=== PATIENT | male | born 1980 | race American Indian/Alaskan Native ===

== ENCOUNTER 2016-12-25 05:50 | Day surgery (SDC) | payer OTHER ==
[~2016-12-25] VITALS: Ht 177.8 cm; Wt 141.5 kg
[~2016-12-25 05:50] MED LIST: ABILIFY5 MG; BISOPROLOL FUMAR5 MG PO; CEPHALEXIN500 MG PO; CHLORTHALIDONE25 MG PO; LANTUS100 UNITS/ SUB-Q; METFORMIN HCL1000 MG PO; METFORMIN HCL500 MG PO
[2016-12-25] MEDS ORDERED: ALBUTEROL0.63 MG/3 INH (06:20)
--- NOTE | 2016-12-25 09:11 | NUR ---
12/25/16 0911 Lianne Duran 0997-PATIENT ARRIVED TO PACU ON 10L MASK REACTIVE WITH EYES OPEN DENIES PAIN OR NAUSEA. GLUCOSE 181 RECEIVED STEROIDS IN OR. 3 LAP SITES TO ABDOMEN CDI WITH GAUZE AND TAPE ICE APPLIED. DROWSY.
--- NOTE | 2016-12-25 09:55 | NUR ---
PATIENT BACK IN DAY SURGERY ROOM FROM PACU. DENIES PAIN. DROWSY. ABDOMINAL LAP SITES X 5, ALL CLEAN DRY AND INTACT WITH GUAZE AND TAPE. IV SITE WNL. SCDs ON. FAMILY AT BEDSIDE. CALL LIGHT WITHIN REACH. ICE WATER PLACED AT BEDSIDE.
[2016-12-25] MEDS ORDERED: NORCO 10-325 T1 EACH PO (10:24)
--- NOTE | 2016-12-25 11:01 | NUR ---
1050: PATIENT AWAKE AND ALERT. DENIES PAIN. TOLERATING WATER. GIVEN CHOCOLATE PUDDING. O2 TURNED OFF. PATIENT ON ROOM AIR. FAMILY AT BEDSIDE. SCDs ON. CALL LIGHT WITHIN REACH.
== END 2016-12-25 12:10 | disposition home or self-care (01) ==
LOC: DS 05:50
PROVIDERS: Colon & Rectal Surgery
PROC: 0FB03ZX Excision of Liver, Percutaneous Approach, Diagnostic (ICD-10-PCS; 2016-12-25)
PROC: 0FT44ZZ Resection of Gallbladder, Percutaneous Endoscopic Approach (ICD-10-PCS; principal; 2016-12-25 06:45)
PROC: BF13YZZ Fluoroscopy of Gallbladder and Bile Ducts using Other Contrast (ICD-10-PCS; 2016-12-25 06:45)
DX: K81.1 Chronic cholecystitis (principal); K75.9 Inflammatory liver disease, unspecified; K76.0 Fatty (change of) liver, not elsewhere classified; E78.5 Hyperlipidemia, unspecified; E11.621 Type 2 diabetes mellitus with foot ulcer; L97.529 Non-pressure chronic ulcer of other part of left foot with unspecified severity; I10 Essential (primary) hypertension; E66.9 Obesity, unspecified; Z88.1 Allergy status to other antibiotic agents; Z88.5 Allergy status to narcotic agent; Z68.42 Body mass index [BMI] 45.0-49.9, adult; Z88.8 Allergy status to other drugs, medicaments and biological substances
CPT/HCPCS: 00790; 74300; J0330; J0694; J1100; J1644; J1885; J2250; J2405; J2704; J2710; J2765; J3010; J7120; Q9967

== ENCOUNTER 2017-11-25 15:57 | Inpatient (IN) | payer OTHER ==
[~2017-11-25] VITALS: Ht 177.8 cm; Wt 141.5 kg
[~2017-11-25 15:57] MED LIST changes: +ALBUTEROL0.63 MG/3 INH; +NORCO 10-325 T1 EACH PO
[2017-11-25] MEDS ORDERED: GLUCOTROL5 MG PO (16:12)
[2017-11-26] MEDS ORDERED: LIPITOR10 MG PO (13:51)
[2017-11-26] MEDS ORDERED: COZAAR25 MG PO (13:52)
--- NOTE | 2017-11-27 12:34 | EKG ---
[facility] [address] [place] [address] Signed Normal sinus rhythm Right bundle branch block Abnormal ECG When compared with ECG of 18-DEC-2016 08:21, No significant change was found Confirmed by LOLI PLAZA MD ([id number]) on 11/27/2017 12:33:48 PM Electronically Signed By: LOLI PLAZA MD 11/27/17 1234 PATIENT NAME: ARABELLA QUINONES Electrocardiogram DATE OF : 82 PHYSICIAN: LOLI PLAZA MD REPORT #: [id number] REPORT IS CONFIDENTIAL AND NOT TO BE RELEASED WITHOUT AUTHORIZATION
[2017-11-29] MEDS ORDERED: AMOX TR-K CLV1 EAC1 PO (10:18)
[2017-11-29] MEDS ORDERED: BISOPROLOL FUMA10 MG PO (10:19)
[2017-11-29] MEDS ORDERED: ACETAMINOPHEN-1 EAC1 PO (10:20)
[2017-11-29] MEDS ORDERED: FOLIC ACID1 MG PO (10:21)
[2017-11-29] MEDS ORDERED: NOVOLOG100 UNIT/2 SUB-Q (10:24)
[2017-11-29] MEDS ORDERED: BLOOD GLUCOSE1 EAC1 MISC (10:30)
[2017-11-29] MEDS ORDERED: ACCU-CHEK1 EAC1 MISC (10:30)
[2017-11-29] MEDS ORDERED: BLOOD GLUCOSE1 EAC8 MISC (10:30)
== END 2017-11-29 11:15 | disposition home or self-care (01) | DRG 854 ==
LOC: ED 15:57 → MS 18:53 → CCU 18:53 → MS 11-26 12:00
PROVIDERS: ADMIT Internal Medicine
PROC: 0J9Q0ZZ Drainage of Right Foot Subcutaneous Tissue and Fascia, Open Approach (ICD-10-PCS; principal; 2017-11-25)
DX: A41.01 Sepsis due to Methicillin susceptible Staphylococcus aureus (principal); L03.115 Cellulitis of right lower limb; N17.9 Acute kidney failure, unspecified; L02.611 Cutaneous abscess of right foot; E87.1 Hypo-osmolality and hyponatremia; E11.628 Type 2 diabetes mellitus with other skin complications; E11.621 Type 2 diabetes mellitus with foot ulcer; L97.519 Non-pressure chronic ulcer of other part of right foot with unspecified severity; E11.22 Type 2 diabetes mellitus with diabetic chronic kidney disease; I12.9 Hypertensive chronic kidney disease with stage 1 through stage 4 chronic kidney disease, or unspecified chronic kidney disease; N18.3 Chronic kidney disease, stage 3 (moderate); K76.0 Fatty (change of) liver, not elsewhere classified; E86.1 Hypovolemia; I45.10 Unspecified right bundle-branch block; E83.42 Hypomagnesemia; D63.8 Anemia in other chronic diseases classified elsewhere; E53.8 Deficiency of other specified B group vitamins; E11.319 Type 2 diabetes mellitus with unspecified diabetic retinopathy without macular edema; E11.40 Type 2 diabetes mellitus with diabetic neuropathy, unspecified; E11.21 Type 2 diabetes mellitus with diabetic nephropathy; Z88.8 Allergy status to other drugs, medicaments and biological substances; Z89.432 Acquired absence of left foot; Z79.4 Long term (current) use of insulin; Z79.899 Other long term (current) drug therapy
CPT/HCPCS: 36415; 73630; 73723; 80048; 80053; 80202; 82570; 82607; 82728; 82746; 83036; 83540; 83605; 83735; 84300; 84466; 85025; 87040; 87070; 87075; 87077; 87186; 87205; 88300; 93005; 93010; 96374; 99285; A9579; J1335; J1650; J2405; J3370; J3475; J7030; J7040; J7050; J7120

== ENCOUNTER 2019-05-19 11:47 | Emergency (ER) | payer OTHER ==
[~2019-05-19] VITALS: Ht 177.8 cm; Wt 141.5 kg
[~2019-05-19 11:47] MED LIST changes: +ACCU-CHEK1 EAC1 MISC; +ACETAMINOPHEN-1 EAC1 PO; +AMOX TR-K CLV1 EAC1 PO; +BISOPROLOL FUMA10 MG PO; +BLOOD GLUCOSE1 EAC1 MISC; +BLOOD GLUCOSE1 EAC8 MISC; +COZAAR25 MG PO; +FOLIC ACID1 MG PO; +GLUCOTROL5 MG PO; +LIPITOR10 MG PO; +NOVOLOG100 UNIT/2 SUB-Q
== END 2019-05-19 14:55 | disposition home or self-care (01) ==
LOC: ED 11:47
DX: S06.9X9A Unspecified intracranial injury with loss of consciousness of unspecified duration, initial encounter (principal); S16.1XXA Strain of muscle, fascia and tendon at neck level, initial encounter; S00.01XA Abrasion of scalp, initial encounter; E11.9 Type 2 diabetes mellitus without complications; I10 Essential (primary) hypertension; Z88.8 Allergy status to other drugs, medicaments and biological substances; Z79.899 Other long term (current) drug therapy; Z79.4 Long term (current) use of insulin; W18.39XA Other fall on same level, initial encounter
CPT/HCPCS: 70450; 72125; 99284-25; A9270

== ENCOUNTER 2019-09-15 19:42 | Emergency (ER) | payer OTHER ==
[~2019-09-15] VITALS: Ht 177.8 cm; Wt 151.9 kg
--- OUTSIDE RECORDS SUMMARY | 2019-09-15 19:46 | XMS ---
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 EAnusha VISIT COUNT (12 MO.) 1 Vicky Gay 2 ANALI Kelly TOTAL 3 NOTE: Visits indicate total known visits. 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
[2019-09-15] MEDS ORDERED: CALCIUM CARBON650 MG PO (21:44)
[2019-09-15] MEDS ORDERED: SUPER CALCIUM600 MG PO (21:44)
== END 2019-09-15 22:00 | disposition home or self-care (01) ==
LOC: ED 19:42
DX: I12.9 Hypertensive chronic kidney disease with stage 1 through stage 4 chronic kidney disease, or unspecified chronic kidney disease (principal); E11.22 Type 2 diabetes mellitus with diabetic chronic kidney disease; N18.9 Chronic kidney disease, unspecified; E83.51 Hypocalcemia; Z79.4 Long term (current) use of insulin
CPT/HCPCS: 80048; 96360; 99282-25; J7030

== ENCOUNTER 2020-07-02 04:18 | Emergency (ER) | payer OTHER ==
[~2020-07-02] VITALS: Ht 177.8 cm; Wt 147.0 kg
[~2020-07-02 04:18] MED LIST changes: +CALCIUM CARBON650 MG PO; +SUPER CALCIUM600 MG PO
--- OUTSIDE RECORDS SUMMARY | 2020-07-02 04:20 | XMS ---
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 Nae has no Care Guidelines for this patient. Karlene VISIT COUNT (12 MO.) 1 Vicky Gay 2 ANALI Kelly TOTAL 3 NOTE: Visits indicate total known visits. 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
[2020-07-02] MEDS ORDERED: INDAPAMIDE1.25 MG PO (04:30)
[2020-07-02] MEDS ORDERED: METOPROLOL SUC200 MG PO (04:31)
--- NOTE | 2020-07-02 19:05 | EKG ---
[facility] [address] [place], [place] [address] Signed Normal sinus rhythm Right bundle branch block Abnormal ECG When compared with ECG of 25-NOV-2017 21:08, QT has lengthened Confirmed by SJ TAVAREZ MD ([id number]) on 07/02/2020 7:05:30 PM Electronically Signed By: SJ TAVAREZ MD 07/02/20 1905 PATIENT NAME: ARABELLA QUINONES KESHA Electrocardiogram DATE OF : 82 PHYSICIAN: SJ TAVAREZ MD REPORT #: [id number] REPORT IS CONFIDENTIAL AND NOT TO BE RELEASED WITHOUT AUTHORIZATION
== END 2020-07-02 19:07 | disposition short-term general hospital (02) ==
LOC: ED 04:18
DX: E11.69 Type 2 diabetes mellitus with other specified complication (principal); L08.9 Local infection of the skin and subcutaneous tissue, unspecified; N17.9 Acute kidney failure, unspecified; D64.9 Anemia, unspecified; E83.51 Hypocalcemia; E83.42 Hypomagnesemia; K92.2 Gastrointestinal hemorrhage, unspecified; Z20.822 Contact with and (suspected) exposure to COVID-19; I10 Essential (primary) hypertension; Z88.8 Allergy status to other drugs, medicaments and biological substances; Z79.899 Other long term (current) drug therapy; Z79.4 Long term (current) use of insulin
CPT/HCPCS: 51702; 73630; 80053; 81001; 82330; 82550; 83605; 83735; 85025; 85651; 86140; 87088; 93005; 93010; 99285-25; C9803; J0295; J0610; J2270; J2405; J7121; U0003

== ENCOUNTER 2023-12-31 20:44 | Emergency (ER) | payer OTHER ==
[~2023-12-31] VITALS: Ht 177.8 cm; Wt 125.0 kg
[~2023-12-31 20:44] MED LIST changes: +INDAPAMIDE1.25 MG PO; +METOPROLOL SUC200 MG PO
[2023-12-31 22:10] LABS: BASOPHILS 0.6 % (0-2); EOSINOPHILS 1.8 % (0-6); HEMATOCRIT 38.4 % (35.0-50.0); LYMPHOCYTES 11.2 % (24-44); MCH 30.8 (27-36); MCHC 33.9 g/dl (30-36); MCV 90.7 fl (81-99); MONOCYTES 5.9 % (0-12); NEUTROPHILS 80.5 % (39-80); PLATELET COUNT 416 K/uL (140-440); RBC 4.23 M/ul (4.3-5.7); RDW 14.1 (10.5-15.0)
[2023-12-31] MEDS ORDERED: ACETAMINOPHEN 500 MG TAB PO ONE (22:15)
[2023-12-31 22:30] LABS: ALBUMIN 3.6 g/dL (3.4-5.0); ALBUMIN/GLOBULIN RATIO 0.68 (1.1-2.4); ANION GAP 12.9 (7-21); BILIRUBIN, TOTAL 0.3 ng/dL (0.2-1.0); CALCIUM 9.2 mg/dL (8.5-10.1); CREATININE, SERUM 6.75 mg/dL (0.70-1.30); POTASSIUM 3.9 mmol/L (3.5-5.1); PROTEIN, TOTAL 8.9 g/dL (6.4-8.2)
[2023-12-31] MEDS ORDERED: LACTATED RINGER'S 1,000 ML IV ONE (22:30)
[2023-12-31] MEDS ORDERED: TRIMETHOPRIM/SULFAMETHOXAZOLE 1 EA TAB PO ONE (22:30)
[2023-12-31 23:48] LABS: LACTIC ACID, BLOOD 1.4 mmol/L (0.4-2.0)
[2023-12-31] MEDS ORDERED: DOXYCYCLINE HY100 MG PO (23:48)
[2024-01-01 00:30] VITALS: BP 132/68
== END 2024-01-01 00:48 | disposition home or self-care (01) ==
LOC: ED 20:44
PROVIDERS: Internal Medicine
DX: L08.9 Local infection of the skin and subcutaneous tissue, unspecified (principal); E11.621 Type 2 diabetes mellitus with foot ulcer; L97.518 Non-pressure chronic ulcer of other part of right foot with other specified severity; I12.0 Hypertensive chronic kidney disease with stage 5 chronic kidney disease or end stage renal disease; E11.22 Type 2 diabetes mellitus with diabetic chronic kidney disease; N18.6 End stage renal disease; E11.42 Type 2 diabetes mellitus with diabetic polyneuropathy; Z99.2 Dependence on renal dialysis; Z88.8 Allergy status to other drugs, medicaments and biological substances; Z79.4 Long term (current) use of insulin; Z79.899 Other long term (current) drug therapy
CPT/HCPCS: 36415; 73630; 80053; 83605; 85025; 86140; A9270

== ENCOUNTER 2024-11-15 06:38 | Day surgery (SDC) | payer OTHER ==
[~2024-11-15 06:38] MED LIST changes: +DOXYCYCLINE HY100 MG PO; +LACTATED RINGER'S 1,000 ML IV SCH
[2024-11-15] MEDS ORDERED: LIDOCAINE HCL 2% 20 ML MDV ONE (06:40)
[2024-11-15] MEDS ORDERED: Ropivacaine HCl 0.5% 30 ML VIAL ONE (06:40)
[2024-11-15] MEDS ORDERED: DEXAMETHASONE SOD PHOS 4 MG/ML VIAL ONE (06:41)
[2024-11-15] MEDS ORDERED: VANCOMYCIN HCL 500 MG VIAL ONE (06:54)
[2024-11-15 07:00] VITALS: BP 150/72
[2024-11-15] MEDS ORDERED: LIDOCAINE HCL 1% 5 ML SDV INJ ONE (07:00)
[2024-11-15] MEDS ORDERED: IBLOOD GLUCOSE TEST STRIP 1 EA TEST VI PRN ×2 (07:00→10:15)
[2024-11-15] MEDS ORDERED: TORSEMIDE100 MG PO (07:01)
[2024-11-15] MEDS ORDERED: XPHOZAH30 MG PO (07:02)
[2024-11-15] MEDS ORDERED: VENTOLIN HFA18 GM INH (07:03)
[2024-11-15] MEDS ORDERED: OZEMPIC2 MG/0.75 SQ (07:03)
[2024-11-15] MEDS ORDERED: BUPRENORPHINE HC2 MG SL (07:03)
[2024-11-15] MEDS ORDERED: fentaNYL citrate 100 MCG/2 ML VIAL ONE (07:26)
[2024-11-15] MEDS ORDERED: propofoL 200 MG/20 ML VIAL ONE ×3 (07:26→08:53)
[2024-11-15] MEDS ORDERED: ondansetron HCL 4 MG/2 ML VIAL ONE (07:26)
[2024-11-15] MEDS ORDERED: LIDOCAINE HCL 2% 5 ML SDV ONE (07:26)
--- NOTE | 2024-11-15 08:58 | NUR ---
RECEIVED GRAM STAIN RESULTS FROM CHRISTOPHER IN LAB. CALLED INTO OR 3 TO RELAY RESULTS, MANY WBC DETECTED, NO ORGANISMS SEEN. VERBAL READ BACK W/MAY VELASCO.
[2024-11-15 10:13] VITALS: BP 124/66
[2024-11-15] MEDS ORDERED: NALOXONE HCL 0.4 MG SYR IV PRN (10:15)
[2024-11-15] MEDS ORDERED: PROCHLORPERAZINE EDISYLATE 10 MG/2 ML VIAL IV PRN (10:15)
[2024-11-15] MEDS ORDERED: fentaNYL citrate 50 MCG/ML SDV IV PRN (10:15)
[2024-11-15] MEDS ORDERED: droPERidol 5 MG/2 ML VIAL IV PRN (10:15)
[2024-11-15] MEDS ORDERED: ondansetron HCL 4 MG/2 ML VIAL IV PRN (10:15)
--- NOTE | 2024-11-15 10:29 | NUR ---
11/15/24 1029 Isabel Ledesma 0912 PT ARRIVED IN PACU NON RESPONSIVE TO NOXIOUS STIMULI WITH OPA IN PLACE. 912 PT REACTIVE. OPA REMOVED. 919 BLOOD SUGAR 134. PT RESTING. 929 THREE VIEW XRAY OF R FOOT TAKEN. 944 SIPPING ON WATER. C/O R FOOT PAIN 12/05. DECLINED PAIN MED AT THIS TIME. 1000 SITTING UP IN BED GETTING DRESSED. 1015 DC INSTRUCTIONS GIVEN. ALL QUESTIONS ANSWERED. 1020 LEFT VIA W/C.
--- NOTE | 2024-11-16 08:26 | EKG ---
[facility] [address] [facility] [place] [address] Signed Normal sinus rhythm Right bundle branch block Abnormal ECG When compared with ECG of 02-JUL-2020 09:07, No significant change was found Confirmed by Sigifredo Spangler MD ([id number]) on 11/16/2024 8:26:03 AM Electronically Signed By: SIGIFREDO SPANGLER MD 11/16/24825 PATIENT NAME: ARABELLA QUINONES KESHA Electrocardiogram DATE OF : 82 PHYSICIAN: SIGIFREDO SPANGLER MD REPORT #: [id number] REPORT IS CONFIDENTIAL AND NOT TO BE RELEASED WITHOUT AUTHORIZATION
--- NOTE | 2024-11-17 06:39 | OR ---
[facility] [address] [place], [place] [address] Signed DATE OF OPERATION: 11/15/2024 SURGEON: Chapin Pan DPM PREOPERATIVE DIAGNOSES: 1. Ulcer with osteomyelitis, right 3rd digit. 2. Ulcer with osteomyelitis, right 1st metatarsal head. 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 SYSTEM DEVELOPMENT ENGINEER: Eliel Gibson. SPECIMEN TO PATHOLOGY: Soft tissue and bone of partial amputation right 3rd digit as well as soft tissue and bone of right hallux amputation, and bone/ulcer of 1st metatarsal head debridement. PROCEDURES PERFORMED: 1. Amputation, right hallux. 2. Partial amputation, right 3rd digit. 3. Debridement of ulcer and 1st metatarsal, right foot. DESCRIPTION OF PROCEDURE: The patient was brought to the operating room and placed on the table in the supine position. Anesthesia Department administered IV sedation after which a local block was given to the right foot using a total of 10 mL 1:1 mixture of 2% lidocaine plain and 0.5% ropivacaine plain. The right leg and foot were then prepped and draped in the usual sterile manner and an Esmarch was used for hemostasis. Attention was initially directed to the right 3rd digit where a transverse elliptical incision was made just distal to the proximal interphalangeal joint, ellipsing the entire ulcer and the distal portion of the toe, then the toe was disarticulated at the proximal interphalangeal joint and sent for pathology. The remaining soft tissue was then debrided to eliminate any remaining necrotic tissue. The bone of the head of the proximal phalanx appeared to be solid and intact without sign of discoloration. The Electronically Signed By: CHAPIN PAN DPM 11/17/24 0639 PATIENT NAME: ARABELLA QUINONES OPERATIVE REPORT DATE OF : 82 REPORT #: [id number] PHYSICIAN: CHAPIN APN DPM PCP: ETHAN CARRERA MD REPORT IS CONFIDENTIAL AND NOT TO BE RELEASED WITHOUT AUTHORIZATION [facility] [address] [place], [place] [address] Signed surgical site was then irrigated and then closed using 4-0 nylon monofilament suture, prior to complete closure, calcium sulfate antibiotic beads were placed within the wound site containing vancomycin. PROCEDURE #2: Amputation right hallux. The incision originated at the dorsal/medial aspect of the 1st metatarsophalangeal joint area extending along the dorsal medial aspect of the toe then ellipsing the toenail. The soft tissues then reflected to expose the bone of the hallux, which was then removed from the soft tissues and disarticulated at the MTPJ. This created a large soft tissue flap which could be used for closure and covering the defect of the large ulcer at the 1st metatarsal head. The soft tissue to the lateral and plantar aspect of the proximal phalanx showed significant amount of necrosis and a pocket of purulent drainage noted at this site and intraoperative cultures were obtained from this. The incision then extended to the ulcer at the dorsal/medial 1st metatarsal head which was excised as well. Soft tissue debrided with use of hand instrumentation. At this time, necrotic tissue was noted to the dorsal, lateral, and plantar aspect of the 1st metatarsal head. Therefore, at this time, it was deemed necessary to excise the 1st metatarsal head, which was then done with power instrumentation, removing the entire 1st metatarsal head. This allowed access to soft tissues surrounding the area, which was then debrided with a rongeur. This extended a small amount dorsally over the 1st intermetatarsal space as well as extending within the subcutaneous tissue over distal 2nd metatarsal. No purulence was found to this area, only some soft tissue necrosis which was debrided. At this time because the soft tissue showed some infection in the area of the 1st metatarsal head as well as the sesamoids, the sesamoids were excised as well. The surgical site irrigated with copious amounts of saline, then also irrigated with Irrisept antibiotic irrigation. At this time, the soft tissue flaps were remodeled removing areas of some necrotic tissue and then the surgical site was closed using 3-0 nylon monofilament suture. The soft tissue from the hallux amputation was pulled proximal and the soft tissue defect of the ulcer at the dorsal/medial 1st metatarsal head was covered. Prior to complete closure, the surgical site was packed with calcium sulfate antibiotic containing beads with vancomycin. Dressings to the hallux amputation and ulcer debridement site as well as the partial amputation site, right 3rd digit were dressed with Adaptic, Betadine-soaked gauze, dry gauze, Kerlix roll, as well as an ABD pad. Coban used to secure the dressings and provide mild compression. INTRAOPERATIVE COMPLICATIONS: None. ESTIMATED BLOOD LOSS: Electronically Signed By: CHAPIN PAN DPM 11/17/24 0639 PATIENT NAME: ARABELLA QUINONES OPERATIVE REPORT DATE OF : 82 REPORT #: [id number] PHYSICIAN: CHAPIN PAN DPM PCP: ETHAN CARRERA MD REPORT IS CONFIDENTIAL AND NOT TO BE RELEASED WITHOUT AUTHORIZATION [address] [address] Signed Less than 5 mL. The patient tolerated the procedure and the anesthesia well and left the operating room with vital signs stable and vascular status intact to the right foot as evidenced by hyperemia with removal of the Esmarch. . CIRO Weinberg/JOHANL /[id number] Copies: ~ Electronically Signed By: CHAPIN PAN DPM 11/17/24 0639 PATIENT NAME: ARABELLA QUINONES [place] OPERATIVE REPORT DATE OF : [birth year] REPORT #: [id number] PHYSICIAN: CHAPIN PAN DPM PCP: ETHAN CARRERA MD REPORT IS CONFIDENTIAL AND NOT TO BE RELEASED WITHOUT AUTHORIZATION
--- NOTE | 2024-11-21 12:59 | PATH ---
[facility] [address] [place], [place] [address] Signed SPECIMEN(S): A PARTIAL RIGHT 3RD TOE SPECIMEN(S): B ULCER RIGHT 1ST METATARSAL AND TOE SPECIMEN SOURCE: A. PARTIAL RIGHT 3RD TOE B. ULCER RIGHT 1ST METATARSAL AND TOE CLINICAL HISTORY: Infected right foot FINAL PATHOLOGIC DIAGNOSIS: A. Right third toe, partial: - Skin mummification and acute inflammation extending into underlying soft tissue with abscess formation. - Underlying bone with marked acute osteomyelitis. B. Ulcer right toe metatarsal - Skin mummification and acute inflammation extending into underlying soft tissue. - Bone with marked acute osteomyelitis. NA MICROSCOPIC EXAMINATION: Histologic sections of all submitted blocks are examined by light microscopy. These findings, together with the gross examination, support the pathologic diagnosis. GROSS DESCRIPTION: A. The specimen, labeled and designated "Faraz, right third toe, partial," is received in formalin and consists of a 3.2 x 2.6 x 1.9 cm goldman-brown mottled, gangrenous distally amputated toe. The skin is entirely involved. The bone margin has been disarticulated. Sectioning of the skin lesion reveals possible underlying bone involvement. Animal Nutrition Consultant sections are submitted in cassettes A1-A2, following decalcification in decal stat. TN (under the direct supervision of a pathologist) B. The specimen, labeled and designated "Farrow, ulcer right toe metatarsal," is received in formalin and consists of three fragments of distal amputated toe, skin and bone measuring up to 7.2 cm in greatest dimension. The skin displays a 3.2 x 2.8 cm red-brown ulcerated lesion, adjacent to the margin. Sectioning of the skin lesion does not involve bone, business representative sections are submitted in PATIENT NAME: ARABELLA QUINONES PATHOLOGY DATE OF : 82 REPORT #: [id number] PHYSICIAN: YUE HERNANDEZ PCP: ETHAN CARRERA MD REPORT IS CONFIDENTIAL AND NOT TO BE RELEASED WITHOUT AUTHORIZATION [facility] [address] [place], [place] [address] Signed cassettes B1, following decalcification in decal stat, skin lesion with underlying soft tissue and business representative bone margin. TN (under the direct supervision of a pathologist) The Gross Description was prepared using a voice recognition system. The report was reviewed for accuracy; however, sound-alike word errors, addition and/or deletions may occur. If there is any question about this report, please contact Client Services. ADDITIONAL NOTES: Immunohistochemical and/or in situ hybridization studies if performed in this case included appropriate positive controls that reacted as expected. This test was developed and its performance characteristics determined by [facility]. It has not been cleared or approved by the U.S. Food and Drug Administration. The FDA has determined that such clearance or approval is not necessary. This test is used for clinical purposes. It should not be regarded as investigational or for research. [facility] is certified under the Clinical Laboratory Improvement Amendments of 1988 (CLIA) as qualified to perform high complexity clinical laboratory testing. PERFORMING LABORATORY: Technical preparation was performed by [facility], [address] [place] [address] (CLIA#: [id number]). Professional interpretation was performed by [facility] - [address] [id number] Diagnostician: Danielle Guzman MD Pathologist Electronically Signed 11/21/2024 Copies: ~ PATIENT NAME: ARABELLA QUINONES [facility] DATE OF : [birth year] REPORT #: [id number] PHYSICIAN: YUE PATHOLOGY PCP: ETHAN CARRERA MD REPORT IS CONFIDENTIAL AND NOT TO BE RELEASED WITHOUT AUTHORIZATION
== END 2024-11-15 10:20 | disposition home or self-care (01) ==
LOC: DS 06:38
PROVIDERS: ATTEND Podiatrist Foot Surgery
PROC: 0Y6M0Z9 Detachment at Right Foot, Partial 1st Ray, Open Approach (ICD-10-PCS; principal; 2024-11-15 07:30)
DX: E11.69 Type 2 diabetes mellitus with other specified complication (principal); M86.171 Other acute osteomyelitis, right ankle and foot; E11.621 Type 2 diabetes mellitus with foot ulcer; L97.514 Non-pressure chronic ulcer of other part of right foot with necrosis of bone; E11.42 Type 2 diabetes mellitus with diabetic polyneuropathy
CPT/HCPCS: 01480; 73630; 80053; 87070; 87075; 87076; 87186; 87205; 93005; 93010; C1713; J1100; J2003; J2405; J2704; J2795; J3010; J3370; J7121